=== PATIENT | male | born 1955 | race Caucasian/White ===

== ENCOUNTER → 2020-07-14 | Outpatient (CLI) | payer MEDICARE ==
--- NOTE | 2020-07-14 15:15 | MR ---
EXAMINATION TYPE: MR angio head wo con DATE OF EXAM: 07/14/2020 COMPARISON: None HISTORY: 64 year-old male E11.9, H93.19, family history TECHNIQUE: High-resolution 3-D [id number] imaging of the [place]. Rotational 3-D reconst ructions generated on a dedicated independent workstation. FINDINGS: The vertebral and basilar arteries are patent. The internal carotid arteries are patent. There is a tiny 1.5 mm infundibulum at the origin of the left posterior communicating artery. Anterior and posterior circulations are patent. Otherwise, no aneurysmal changes identified. IMPRESSION: No large vessel intracranial arterial occlusion, significant stenosis, or aneurysmal change is seen.
== END | disposition home or self-care (01) ==
LOC: RADMRIMAIN 10:25
PROVIDERS: ATTEND Nurse Practitioner Family
DX: H93.19 Tinnitus, unspecified ear (principal)
CPT/HCPCS: 70544